=== PATIENT | female | born 2000 | race Hispanic/Latino ===

== ENCOUNTER 2020-05-05 21:38 | Emergency (ER) | payer OTHER ==
[2020-05-05] MEDS ORDERED: ONDANSETRON 4 MG/2 ML VIAL ONE (22:31)
[2020-05-05] MEDS ORDERED: NA CHLORIDE 0.9% 1,000 ML ONE (22:31)
[2020-05-05 23:03] LABS: Absolute Lymphocytes (CBC) 1.7 K/uL (0.7-4.9); Basophils % 0.7 % (0-1.3); Lymphocytes % 21.9 % (15.3-44.8); MPV 8.9 fL (7.6-11.3); RBC Red Blood Cell Count 4.52 M/uL (3.86-4.86)
[2020-05-05] MEDS ORDERED: DIPHENHYDRAMINE 50 MG/ML VIAL ONE (23:10)
[2020-05-05 23:15] LABS: ALT/SGPT 27 U/L (12-78); AST/SGOT 16 U/L (15-37); Albumin 3.6 g/dL (3.4-5.0); Alkaline Phosphatase 66 U/L (45-117); BUN Blood Urea Nitrogen 7 mg/dL (7-18); Bicarbonate 25 mmol/L (21-32); Bilirubin Direct < 0.1 mg/dL (0-0.2); Bilirubin Total 0.4 mg/dL (0.2-1.0); Glucose Level 152 mg/dL (74-106); Lipase 111 U/L (73-393); Magnesium 2.3 mg/dL (1.8-2.4); Potassium 3.4 mmol/L (3.5-5.1); Protein, Total 7.7 g/dL (6.4-8.2); Sodium Level 141 mmol/L (136-145)
[2020-05-06 00:07] LABS: Urine Blood 1+ (NEG); Urine Glucose NEGATIVE (NEG); Urine Protein NEGATIVE (NEG); Urine pH 6.5 (5.0-7.0)
--- NOTE | 2020-05-06 00:12 | EDPHYS ---
Physician Documentation [facility] Name: Aileen Osborne Age: 19 yrs Sex: Female : 2000 Arrival Date: 05/05/2020 Time: 21:40 Bed 14 Private MD: ED Physician Lazaro Ortega HPI: 05/05 22:05 This 19 yrs old Female presents to ER via Ambulatory with complaints of cp Diarrhea. 22:05 The patient presents to the emergency department with nausea, that is mild, diarrhea, cp that is intermittent, 5 times today. 22:05 Onset: The symptoms/episode began/occurred gradually, and became worse today. Possible cp causes: Patient reports having endoscopy and CT abdomen performed last Wednesday, 4 days ago. Associated signs and symptoms: Pertinent negatives: anorexia, constipation, dysuria, fever, GI bleeding, vomiting. Severity of symptoms: in the emergency department the symptoms are unchanged. Historical: - Allergies: 21:48 PENICILLINS; ll1 - PSHx: 21:48 None; ll1 - Immunization history:: Flu vaccine is not up to date. - Social history:: Smoking status: Patient denies any tobacco usage or history of. ROS: 22:10 Constitutional: Negative for body aches, chills, fever, poor PO intake, weight loss. cp 22:10 Eyes: Negative for injury, pain, redness, and discharge. cp 22:10 ENT: Negative for ear pain, sore throat, difficulty swallowing, difficulty handling secretions. 22:10 Cardiovascular: Negative for chest pain, palpitations. 22:10 Respiratory: Negative for cough, shortness of breath, wheezing. 22:10 Abdomen/GI: Positive for nausea, diarrhea, Negative for abdominal pain, vomiting, constipation, anorexia, black/tarry stool, rectal bleeding. 22:10 Back: Negative for radiated pain. 22:10 : Negative for urinary symptoms. 22:10 Skin: Negative for rash. 22:10 Neuro: Negative for altered mental status, headache, weakness. 22:10 All other systems are negative. Exam: 22:15 Constitutional: The patient appears in no acute distress, alert, awake, non-toxic, well cp developed, well nourished. 22:15 Head/Face: Normocephalic, atraumatic. cp 22:15 Eyes: Periorbital structures: appear normal, Conjunctiva: normal, no exudate, no injection, Sclera: no appreciated abnormality, Lids and lashes: appear normal, bilaterally. 22:15 ENT: External ear(s): are unremarkable, Nose: is normal, Mouth: Lips: moist, Oral mucosa: moist, Posterior pharynx: Airway: no evidence of obstruction, patent. 22:15 Chest/axilla: Inspection: normal, Palpation: is normal, no crepitus, no tenderness. 22:15 Cardiovascular: Rate: tachycardic, Rhythm: regular. 22:15 Respiratory: the patient does not display signs of respiratory distress, Respirations: normal, no use of accessory muscles, no retractions, labored breathing, is not present, Breath sounds: are clear throughout, no decreased breath sounds, no stridor, no wheezing. 22:15 Abdomen/GI: Inspection: abdomen appears normal, Bowel sounds: active, all quadrants, Palpation: abdomen is soft and non-tender, in all quadrants, rebound tenderness, is not appreciated, voluntary guarding, is not appreciated, involuntary guarding, is not appreciated. 22:15 Back: CVA tenderness, is absent. 22:15 Skin: no rash present. 22:15 Neuro: Orientation: to person, place \T\ time. Mentation: is normal, Motor: moves all fours, strength is normal. Vital Signs: 21:45 BP 136 / 90; Pulse 120; Resp 18; Temp 98.5; Pulse Ox 100% ; Weight 68.04 kg; Height 5 ll1 ft. 4 in. (162.56 cm); Pain 6/10; 22:45 BP 120 / 81; Pulse 107; Resp 16; Pulse Ox 99% on R/A; jb4 23:25 BP 138 / 87; Pulse 101; Resp 19; Pulse Ox 100% on R/A; jb4 05/06 00:33 BP 104 / 69; Pulse 99; Resp 16; Pulse Ox 98% on R/A; jb4 05/05 21:45 Body Mass Index 25.75 (68.04 kg, 162.56 cm) ll1 MDM: 05/05 21:55 Patient medically screened. cp 05/06 00:10 Data reviewed: vital signs, nurses notes, lab test result(s), radiologic studies, plain cp films. 00:10 Test interpretation: by ED physician or midlevel provider: xrays of abdomen negative cp for acute findings. Counseling: I had a detailed discussion with the patient and/or guardian regarding: the historical points, exam findings, and any diagnostic results supporting the discharge/admit diagnosis, lab results, radiology results, the need for outpatient follow up, a family practitioner, to return to the emergency department if symptoms worsen or persist or if there are any questions or concerns that arise at home. Response to treatment: the patient's symptoms have markedly improved after treatment, and as a result, I will discharge patient. 05/05 22:08 Order name: Basic Metabolic Panel; Complete Time: 23:21 cp 05/05 23:21 Interpretation: Normal except: K 3.4; CL 109; GLUC 152; GFR 79. cp 05/05 22:08 Order name: CBC with Diff; Complete Time: 23:21 cp 05/05 23:22 Interpretation: Normal except: MN% 3.2. cp 05/05 22:08 Order name: Hepatic Function; Complete Time: 23:21 cp 05/05 23:22 Interpretation: Normal except: GLOB 4.1; A/G 0.9. 05/05 22:08 Order name: Lipase; Complete Time: 23:21 cp 05/05 22:08 Order name: Fecal Leukocyte Stain 05/05 22:08 Order name: Occult Blood 05/05 22:08 Order name: Stool Culture 05/05 22:08 Order name: CDIFF 05/05 22:08 Order name: Magnesium; Complete Time: 23:21 cp 05/05 22:34 Order name: Urine Dipstick--Ancillary (enter results) [facility] 05/05 22:34 Order name: Urine --Ancillary (enter results) [facility] 05/05 23:23 Order name: XRAY Abdomen With Erect 05/05 22:08 Order name: IV Saline Lock; Complete Time: 22:48 cp 05/05 22:08 Order name: Labs collected and sent; Complete Time: 22:48 cp 05/05 22:08 Order name: Urine Dipstick-Ancillary (obtain specimen); Complete Time: 22:33 cp 05/05 22:08 Order name: Urine Test (obtain specimen); Complete Time: 22:33 cp Administered Medications: 05/05 22:40 Drug: Zofran (Ondansetron) 4 mg Route: IVP; Site: right wrist; jb4 23:00 Follow up: Response: Adverse reaction, Physician notified jb4 22:43 Drug: NS 0.9% 1000 ml Route: IV; Rate: 1 bolus; Site: right wrist; jb4 23:45 Follow up: Response: No adverse reaction; IV Status: Completed infusion jb4 23:00 Drug: Benadryl 12.5 mg Route: IVP; Site: right wrist; jb4 23:20 Follow up: Response: Marked relief of symptoms jb4 23:25 Drug: Benadryl 12.5 mg Route: IVP; Site: right wrist; jb4 05/06 00:39 Follow up: Response: No adverse reaction; Marked relief of symptoms jb4 00:24 Drug: LoMOTIL 2 tabs Route: PO; jb4 00:39 Follow up: Response: No adverse reaction jb4 00:24 Drug: Potassium Effervescent Tablet 25 mEq Route: PO; jb4 00:38 Follow up: Response: No adverse reaction jb4 Disposition: 05/07 00:12 Co-signature as Attending Physician, Lazaro Ortega MD. [email or web address] Disposition: 05/06/20 00:12 Discharged to Home. Impression: Diarrhea, unspecified. - Condition is Stable. - Discharge Instructions: Food Choices to Help Relieve Diarrhea, Adult, Diarrhea, Adult. - Prescriptions for Lomotil 2.5- 0.025 mg Oral Tablet - take 1 tablet by ORAL route every 6 hours As needed; 20 tablet. - Medication Reconciliation Form, Thank You Letter, Antibiotic Education, Prescription Opioid Use form. - Follow up: Private Physician; When: 1 - 2 days; Reason: Recheck today's complaints. - Problem is new. - Symptoms have improved. Signatures: Dispatcher [employer] EDMS Rajan Weiss PA PA cp Bryson, James, RN RN jb4 Jelly Fan RN RN ll1 Lazaro Ortega MD MD [email or web address] Corrections: (The following items were deleted from the chart) 05/06 00:40 00:12 05/06/2020 00:12 Discharged to Home. Impression: Diarrhea, unspecified. Condition jb4 is Stable. Forms are Medication Reconciliation Form, Thank You Letter, Antibiotic Education, Prescription Opioid Use. Follow up: Private Physician; When: 1 - 2 days; Reason: Recheck today's complaints. Problem is new. Symptoms have improved. cp
--- NOTE | 2020-05-06 00:12 | ER ---
Nurse's Notes [facility] Name: Aileen Osborne Age: 19 yrs Sex: Female : 2000 Arrival Date: 05/05/2020 Time: 21:40 Bed 14 Private MD: Diagnosis: Diarrhea, unspecified Presentation: 05/05 21:45 Chief complaint: Patient states: Had endoscopy and CT Wednesday. States she hasn't felt ll1 well since. Nausea, abd pain, diarrhea. Diarrhea and feeling worse today. No fever. Coronavirus screen: Client denies travel out of the [place] in the last 14 days. At this time, the client does not indicate any symptoms associated with coronavirus-19. The client reports previous COVID testing was negative. Ebola Screen: Patient denies travel to an Ebola-affected area in the 21 days before illness onset. Initial Sepsis Screen: Does the patient meet any 2 criteria? HR > 90 bpm. No. Patient's initial sepsis screen is negative. Does the patient have a suspected source of infection? Yes: Acute abdominal pain. Risk Assessment: Do you want to hurt yourself or someone else? Patient reports no desire to harm self or others. Onset of symptoms was May 01, 2020. 21:45 Method Of Arrival: Ambulatory ll1 21:45 Acuity: DIXIE 3 ll1 Historical: - Allergies: 21:48 PENICILLINS; ll1 - PSHx: 21:48 None; ll1 - Immunization history:: Flu vaccine is not up to date. - Social history:: Smoking status: Patient denies any tobacco usage or history of. Screenin:50 Abuse screen: Denies threats or abuse. Nutritional screening: No deficits noted. jb4 Tuberculosis screening: No symptoms or risk factors identified. Fall Risk None identified. Assessment: 21:50 General: Appears in no apparent distress. comfortable, Behavior is calm, cooperative, jb4 appropriate for age. Pain: Denies pain. Neuro: Level of Consciousness is awake, alert, obeys commands, Oriented to person, place, time, situation. Cardiovascular: Patient's skin is warm and dry. Respiratory: Airway is patent Respiratory effort is even, unlabored, Respiratory pattern is regular, symmetrical. GI: Abdomen is flat, Reports diarrhea, nausea. : No signs and/or symptoms were reported regarding the genitourinary system. EENT: No signs and/or symptoms were reported regarding the EENT system. Derm: Skin is intact, Skin is pink, warm \T\ dry. Musculoskeletal: Circulation, motion, and sensation intact. Range of motion: intact in all extremities. 22:49 Reassessment: Patient appears in no apparent distress at this time. Patient and/or jb4 family updated on plan of care and expected duration. Pain level reassessed. Patient is alert, oriented x 3, equal unlabored respirations, skin warm/dry/pink. 22:55 Reassessment: PT report shaking uncontrollably after receiving Zofran provider jb4 notified, see MAR for orders. 23:45 Reassessment: Patient appears in no apparent distress at this time. Patient and/or jb4 family updated on plan of care and expected duration. Pain level reassessed. Patient is alert, oriented x 3, equal unlabored respirations, skin warm/dry/pink. 05/06 00:33 Reassessment: Patient appears in no apparent distress at this time. Patient and/or jb4 family updated on plan of care and expected duration. Pain level reassessed. Patient is alert, oriented x 3, equal unlabored respirations, skin warm/dry/pink. Vital Signs: 05/05 21:45 BP 136 / 90; Pulse 120; Resp 18; Temp 98.5; Pulse Ox 100% ; Weight 68.04 kg; Height 5 ll1 ft. 4 in. (162.56 cm); Pain 6/10; 22:45 BP 120 / 81; Pulse 107; Resp 16; Pulse Ox 99% on R/A; jb4 23:25 BP 138 / 87; Pulse 101; Resp 19; Pulse Ox 100% on R/A; jb4 05/06 00:33 BP 104 / 69; Pulse 99; Resp 16; Pulse Ox 98% on R/A; jb4 05/05 21:45 Body Mass Index 25.75 (68.04 kg, 162.56 cm) ll1 ED Course: 05/05 21:40 Patient arrived in ED. cl3 21:47 Triage completed. ll1 21:48 Arm band placed on Patient placed in an exam room, on a stretcher. ll1 21:49 Rajan Weiss PA is PHCP. cp 21:49 Lazaro Ortega MD is Attending Physician. cp 22:09 Haroon Carranza, RN is Primary Nurse. jb4 22:10 Urine collected: clean catch specimen, clear, evan colored. jp3 22:20 Placed in gown. Bed in low position. Call light in reach. Side rails up X 1. Warm jp3 blanket given. Verbal reassurance given. Pulse ox on. NIBP on. 22:20 Stool sample collected. Patient maintains SpO2 saturation greater than 95% on room air. jp3 22:20 Stool Culture Sent, Fecal Leukocyte Stain, Occult Blood Sent. jp3 22:20 CDIFF Sent. jp3 05/06 00:15 XRAY Abdomen With Erect In Process Unspecified. EDMS 00:34 No provider procedures requiring assistance completed. IV discontinued, intact, jb4 bleeding controlled, No redness/swelling at site. Pressure dressing applied. Administered Medications: 05/05 22:40 Drug: Zofran (Ondansetron) 4 mg Route: IVP; Site: right wrist; jb4 23:00 Follow up: Response: Adverse reaction, Physician notified jb4 22:43 Drug: NS 0.9% 1000 ml Route: IV; Rate: 1 bolus; Site: right wrist; jb4 23:45 Follow up: Response: No adverse reaction; IV Status: Completed infusion jb4 23:00 Drug: Benadryl 12.5 mg Route: IVP; Site: right wrist; jb4 23:20 Follow up: Response: Marked relief of symptoms jb4 23:25 Drug: Benadryl 12.5 mg Route: IVP; Site: right wrist; jb4 05/06 00:39 Follow up: Response: No adverse reaction; Marked relief of symptoms jb4 00:24 Drug: LoMOTIL 2 tabs Route: PO; jb4 00:39 Follow up: Response: No adverse reaction jb4 00:24 Drug: Potassium Effervescent Tablet 25 mEq Route: PO; jb4 00:38 Follow up: Response: No adverse reaction jb4 Outcome: 00:12 Discharge ordered by . cp 00:34 Discharged to home ambulatory, with family. jb4 00:34 Condition: stable 00:34 Discharge instructions given to patient, Instructed on discharge instructions, follow up and referral plans. medication usage, Demonstrated understanding of instructions, follow-up care, medications, Prescriptions given X 1. 00:40 Patient left the ED. jb4 Signatures: Dispatcher [employer] EDFL Rajan Weiss PA PA cp Bryson, James, RN RN jb4 Kavin Ariza jp3 Katerine Fan cl3 Jelly Fan, RN RN ll1 Corrections: (The following items were deleted from the chart) 05/05 22 22:25 Fecal Leukocyte Stain+BA.LAB.BRZ drawn and sent. jp3 jp3 22: Occult Blood+BA.LAB.BRZ drawn and sent. jp3 jp3 22: Stool Culture+BA.LAB.BRZ drawn and sent. jp3 jp3 22 22:33 C.difficile GDH Ag \T\ Toxin AB+LAB.BRZ drawn and sent. jp3 jp3
[2020-05-06] MEDS ORDERED: POTASSIUM 25 MEQ EFFERV TAB ONE (00:27)
[2020-05-06] MEDS ORDERED: DIPHENOX/ATROP SULF 1 TAB PO ONE (00:27)
[2020-05-06 01:13] VITALS: TEMP 98.5
[2020-05-06 01:17] VITALS: BP 104/69; O2SAT 98
--- NOTE | 2020-05-06 08:35 | RAD REPORT ---
EXAM DESCRIPTION: RAD - Abdomen W Erect - 05/06/2020 12:10 am CLINICAL HISTORY: diarrhea Pain COMPARISON: No comparisons FINDINGS: The bowel gas pattern is non-obstructive. No evidence of free air or pneumatosis. No suspi cious calcifications. No significant bony findings. IMPRESSION: Negative examination.
[2020-05-06 16:18] LABS: C.diff Antigen/Toxin AG NEG:TOX NEG (NEG : NEG)
== END 2020-05-06 00:40 | disposition home or self-care (01) ==
LOC: ER 21:38
DX: R19.7 Diarrhea, unspecified (principal); Z88.0 Allergy status to penicillin
CPT/HCPCS: 96361; 87045; 85025; 80048; 36415; 83735; 89055; 82274; 81025; 80076; 87046; 81003; 87324; 83690; 87449; 74019; 96375; 96374; 99284; J1200; J7030; J2405

== ENCOUNTER 2021-12-05 08:34 | Emergency (ER) | payer OTHER ==
--- OUTSIDE RECORDS SUMMARY | 2021-12-05 08:37 | XMS REPORT | Continuity of Care Document ---
:2000 Author Organization [facility] t Address [address] [place] [address] Care Team Providers Name Role Phone GLASSNER Attending Clinician Unavailable Problems This patient has no known problems. Allergies, Adverse Reactions, Alerts This patient has no known allergies or adverse reactions. Medications This patient has no known medications. Procedures This patient has no known procedures. Encounters Start End Encounter Admission Attending Care Care Encounter Source Date/Time Date/Time Type Type Clinicians Facility Department ID 2020-11-12 2020-11-12 Outpatient [facility] [id number] [place] 00:00:00 00:00:00 ANI [address] 2020-07-31 2020-07-31 Outpatient [facility] [id number] [place] 00:00:00 00:00:00 ANI [address] 2020-06-11 2020-06-11 Outpatient [facility] [id number] [place] 00:00:00 00:00:00 ANI [address] 2020-05-14 2020-05-14 [facility] [id number] [place] 00:00:00 00:00:00 ANI [address] Results This patient has no known results.
[2021-12-05] MEDS ORDERED: METOCLOPRAMIDE 10 MG/2mL INJ ONE (09:20)
[2021-12-05] MEDS ORDERED: NA CHLORIDE 0.9% 1,000 ML ONE (09:20)
[2021-12-05 09:36] LABS: Urine Blood 2+ (Negative); Urine Glucose Negative (Negative); Urine Protein Negative (Negative); Urine Specific Gravity 1.015 (1.005-1.030)
[2021-12-05] MEDS ORDERED: DIPHENHYDRAMINE 50 MG/ML VIAL ONE (09:36)
[2021-12-05] MEDS ORDERED: FAMOTIDINE 20 MG/2 ML VIAL IV ONE (09:36)
[2021-12-05 09:43] LABS: Absolute Lymphocytes (CBC) 1.3 K/uL (0.7-4.9); Hematocrit 45.6 % (36.0-45.0); Lymphocytes % 15.6 % (15.3-44.8); MPV 8.6 fL (7.6-11.3); RBC Red Blood Cell Count 4.93 M/uL (3.86-4.86)
[2021-12-05 09:58] LABS: Urine Specific Gravity/Preg 1.015 (1.005-1.030)
[2021-12-05 09:58] LABS: Bilirubin Total 0.8 mg/dL (0.2-1.0); Potassium 3.8 mmol/L (3.5-5.1); Protein, Total 8.5 g/dL (6.4-8.2)
[2021-12-05] MEDS ORDERED: DICYCLOMINE HCL 20 MG/2 ML AMP IM ONE (10:29)
[2021-12-05] MEDS ORDERED: MORPHINE 4 MG/ML SYR ONE (11:05)
--- NOTE | 2021-12-05 12:18 | RAD REPORT ---
EXAM DESCRIPTION: CT - Abdomen Pelvis W Contrast - 12/05/2021 11:51 am CLINICAL HISTORY: Abdominal pain COMPARISON: 2019 TECHNIQUE: Computed axial tomography of the abdomen pelvis was obtained. 100 cc Isovue-300 was admin istered intravenously. Oral contrast was not requested which limits evaluation of bowel and appendix All CT scans are performed using dose optimization technique as appropriate and may include automated exposure control or mA/KV adjustment according to patient size. FINDINGS: The liver, spleen, pancreas, adrenal and kidneys appear unremarkable. There is no evidence of diverticulitis. Normal appendix Fluid is present within nondilated large small bowel. No adnexal mass IMPRESSION: Fluid within nondilated large and small bowel may indicate an enteritis
--- NOTE | 2021-12-05 12:23 | EDPHYS ---
Physician Documentation [facility] Name: Aileen Osborne Age: 21 yrs Sex: Female : 2000 Arrival Date: 12/05/2021 Time: 08:40 Bed 7 Private MD: NIKOLE BRAXTON ED Physician Marvel Long HPI: 12/05 09:09 This 21 yrs old Female presents to ER via Ambulatory with complaints of jmm Diarrhea, Abdominal Pain, Decreased Appetite. 09:09 The patient presents to the emergency department with nausea, diarrhea, abdominal pain. jmm Onset: The symptoms/episode began/occurred acutely, this morning. Possible causes: unknown. The symptoms are aggravated by nothing. The symptoms are alleviated by nothing. Associated signs and symptoms: Pertinent positives: abdominal pain. The patient has not experienced similar symptoms in the past. 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 - Social history:: Smoking status: Patient denies any tobacco usage or history of. ROS: 09:09 Constitutional: Negative for fever, chills, and weight loss, Cardiovascular: Negative jmm for chest pain, palpitations, and edema, Respiratory: Negative for shortness of breath, cough, wheezing, and pleuritic chest pain. 09:09 Abdomen/GI: Positive for abdominal pain, nausea, diarrhea. 09:09 All other systems are negative. Exam: 09:09 Constitutional: This is a well developed, well nourished patient who is awake, alert, jmm and in no acute distress. Head/Face: atraumatic. Eyes: EOMI, no conjunctival erythema appreciated ENT: Moist Mucus Membranes Neck: Trachea midline, Supple Chest/axilla: Normal chest wall appearance and motion. Cardiovascular: Regular rate and rhythm. No edema appreciated Respiratory: Normal respirations, no respiratory distress appreciated 09:09 Back: Normal ROM Skin: General appearance color normal MS/ Extremity: Moves all extremities, no obvious deformities appreciated, no edema noted to the lower extremities Neuro: Awake and alert Psych: Behavior is normal, Mood is normal, Patient is cooperative and pleasant 09:09 Abdomen/GI: Inspection: abdomen appears normal, Bowel sounds: normal, Palpation: soft, mild abdominal tenderness, in the right lower quadrant and left lower quadrant. Vital Signs: 08:58 BP 128 / 89; Pulse 112; Resp 16; Temp 98.4; Pulse Ox 100% on R/A; Weight 63.05 kg; iw Height 5 ft. 3 in. (160.02 cm); 09:46 BP 119 / 81; Pulse 102; Resp 16; Pulse Ox 100% on R/A; vg1 10:30 BP 97 / 64; Pulse 101; Resp 16; Pulse Ox 100% on R/A; vg1 12:03 BP 114 / 77; Pulse 84; Resp 16; Pulse Ox 100% on R/A; vg1 08:58 Body Mass Index 24.62 (63.05 kg, 160.02 cm) iw MDM: 09:09 Patient medically screened. [facility] 12:21 Data reviewed: vital signs, nurses notes. Counseling: I had a detailed discussion with sherron the patient and/or guardian regarding: the historical points, exam findings, and any diagnostic results supporting the discharge/admit diagnosis, lab results, radiology results, the need for outpatient follow up, to return to the emergency department if symptoms worsen or persist or if there are any questions or concerns that arise at home. 12/05 09:20 Order name: CBC with Diff; Complete Time: 09:47 [facility] 12/05 09:20 Order name: CMP; Complete Time: 09:58 [facility] 12/05 09:20 Order name: Lipase; Complete Time: 09:58 [facility] 12/05 09:36 Order name: Urine Dipstick-Ancillary; Complete Time: 09:37 [facility] 12/05 09:37 Order name: Urine --Ancillary (enter results); Complete Time: 09:59 dh3 12/05 11:09 Order name: CT Abd/Pelvis - IV Contrast Only; Complete Time: 12:21 [facility] 12/05 09:20 Order name: IV Saline Lock; Complete Time: 09:28 [facility] 12/05 09:20 Order name: Labs collected and sent; Complete Time: 09:28 [facility] 12/05 09:20 Order name: Urine Dipstick-Ancillary (obtain specimen); Complete Time: 09:43 [facility] 12/05 09:20 Order name: Urine Test (obtain specimen); Complete Time: :43 [facility] Administered Medications: 08:38 Drug: diphenhydrAMINE 12.5 mg Route: IVP; Site: left antecubital; vg1 12:01 Follow up: Response: No adverse reaction vg1 08:40 Drug: Pepcid (famotidine) 20 mg Route: IVP; Site: left antecubital; vg1 12:02 Follow up: Response: No adverse reaction vg1 09:28 Drug: NS 0.9% 1000 ml Route: IV; Rate: 1 bolus; Site: left antecubital; vg1 12:09 Follow up: IV Status: Completed infusion; IV Intake: 1000ml vg1 09:28 Drug: Reglan (metoCLOPramide) 10 mg Route: IVP; Site: left antecubital; vg1 12:01 Follow up: Response: No adverse reaction vg1 10:34 Drug: Bentyl (dicyclomine) 20 mg Route: IM; Site: right gluteus; vg1 12:01 Follow up: Response: No adverse reaction; Marked relief of symptoms vg1 11:23 Drug: morphine 2 mg {Note: Pt received 2 mg of the 4 mg ordered per provider.} Route: vg1 IVP; Infused Over: 4 mins; Site: left antecubital; 12:00 Follow up: Response: Pain is decreased vg1 Disposition: 18:19 Co-signature as Attending Physician, Marvel Long MD. rn Disposition Summary: 12/05/21 12:22 Discharge Ordered Location: Home [facility] Condition: Stable [facility] Diagnosis - Diarrhea, unspecified [facility] Followup: [facility] - With: Private Physician - When: 2 - 3 days - Reason: Recheck today's complaints, Continuance of care, Re-evaluation by your physician Discharge Instructions: - Discharge Summary Sheet [facility] - Food Choices to Help Relieve Diarrhea, Adult [facility] Forms: - Medication Reconciliation Form [facility] - Thank You Letter [facility] - Antibiotic Education [facility] - Prescription Opioid Use [facility] Prescriptions: - dicyclomine 20 mg Oral Tablet - take 1 tablet by ORAL route 4 times per day; 20 tablet; Refills: 0, Product [facility] Selection Permitted - promethazine 25 mg Oral Tablet - take 1 tablet by ORAL route every 6 hours As needed; 20 tablet; Refills: 0, jmm Product Selection Permitted Signatures: Dispatcher [employer] Prem Bernal PA PA jmm Williams, Irene, RN RN iw Nieto, Roman, MD MD rn Garcia, Victoria, RN RN vg1
--- NOTE | 2021-12-05 12:23 | ER ---
Nurse's Notes [facility] Name: Aileen Osborne Age: 21 yrs Sex: Female : 2000 Arrival Date: 12/05/2021 Time: 08:40 Bed 7 Private MD: NIKOLE BRAXTON Diagnosis: Diarrhea, unspecified Presentation: 12/05 08:58 Chief complaint: Patient states: diarrhea since this morning , having sharp pain across iw lower abdomen, intermittent. Coronavirus screen: Ebola Screen: Patient negative for fever greater than or equal to 101.5 degrees Fahrenheit, and additional compatible Ebola Virus Disease symptoms Patient denies exposure to infectious person. Patient denies travel to an Ebola-affected area in the 21 days before illness onset. No symptoms or risks identified at this time. Initial Sepsis Screen: Does the patient meet any 2 criteria? No. Patient's initial sepsis screen is negative. Does the patient have a suspected source of infection? No. Patient's initial sepsis screen is negative. Risk Assessment: Do you want to hurt yourself or someone else? Patient reports no desire to harm self or others. Onset of symptoms was December 05, 2021. 08:58 Method Of Arrival: Ambulatory iw 08:58 Acuity: DIXIE 3 iw DBA: 08:59 LMP 11/28/2021 iw Historical: - Allergies: 08:59 PENICILLINS; iw 08:59 Zofran; iw 08:59 Nexium; iw - Home Meds: 08:59 control daily [Active]; iw - PMHx: 08:59 IBS; iw - PSHx: 08:59 None; iw - Immunization history:: Client reports having NOT received the Covid vaccine. - Social history:: Smoking status: Patient denies any tobacco usage or history of. Screenin:00 Abuse screen: Denies threats or abuse. Nutritional screening: No deficits noted. vg1 Tuberculosis screening: No symptoms or risk factors identified. Fall Risk No fall in past 12 months (0 pts). No secondary diagnosis (0 pts). IV access (20 points). Ambulatory Aid- None/Bed Rest/Nurse Assist (0 pts). Gait- Normal/Bed Rest/Wheelchair (0 pts) Mental Status- Oriented to own ability (0 pts). Total Barker Fall Scale indicates No Risk (0-24 pts). Assessment: 09:00 General: Appears in no apparent distress. uncomfortable, Behavior is calm, cooperative. vg1 Pain: Complains of pain in right lower quadrant and left lower quadrant Pain currently is 5 out of 10 on a pain scale. Pain began this morning Noted to be grimacing. Neuro: Farfan Agitation-Sedation Scale (RASS): 0 - Alert and Calm Level of Consciousness is awake, alert, obeys commands, Oriented to person, place, time, situation. Cardiovascular: Patient's skin is warm and dry. Respiratory: Airway is patent Respiratory effort is even, unlabored. GI: Abdomen is flat, non-distended, Abdomen is tender to palpation in right lower quadrant and left lower quadrant Reports diarrhea, nausea, Patient currently denies vomiting. : No signs and/or symptoms were reported regarding the genitourinary system. EENT: No signs and/or symptoms were reported regarding the EENT system. Derm: Skin is intact, is healthy with good turgor. Musculoskeletal: Circulation, motion, and sensation intact. 10:00 Reassessment: Patient appears in no apparent distress at this time. No changes from vg1 previously documented assessment. Patient and/or family updated on plan of care and expected duration. Pain level reassessed. Patient is alert, oriented x 3, equal unlabored respirations, skin warm/dry/pink. 10:21 Reassessment: Received VO from Wiliam MICHELLE to administer Bentyl 20 mg IM x1. vg1 12:02 Reassessment: Patient appears in no apparent distress at this time. Patient and/or vg1 family updated on plan of care and expected duration. Pain level reassessed. Patient is alert, oriented x 3, equal unlabored respirations, skin warm/dry/pink. Patient denies pain at this time. Patient states feeling better. Vital Signs: 08:58 BP 128 / 89; Pulse 112; Resp 16; Temp 98.4; Pulse Ox 100% on R/A; Weight 63.05 kg; iw Height 5 ft. 3 in. (160.02 cm); 09:46 BP 119 / 81; Pulse 102; Resp 16; Pulse Ox 100% on R/A; vg1 10:30 BP 97 / 64; Pulse 101; Resp 16; Pulse Ox 100% on R/A; vg1 12:03 BP 114 / 77; Pulse 84; Resp 16; Pulse Ox 100% on R/A; vg1 08:58 Body Mass Index 24.62 (63.05 kg, 160.02 cm) ED Course: 08:40 Patient arrived in ED. am2 08:40 NIKOLE BRAXTON is Private Physician. am2 08:59 Triage completed. iw 09:00 Joanne Gatica, RN is Primary Nurse. vg1 09:00 Prem Swain PA is PHCP. [facility] 09:00 Marvel Long MD is Attending Physician. [facility] 09:00 Arm band placed on. iw 09:00 Patient has correct armband on for positive identification. Bed in low position. Call vg1 light in reach. Side rails up X 1. Adult w/ patient. 09:00 No provider procedures requiring assistance completed. vg1 09:22 Initial lab(s) drawn, by va, sent to lab. Inserted saline lock: 20 gauge in left vg1 antecubital area, using aseptic technique. Blood collected. 11:53 CT Abd/Pelvis - IV Contrast Only In Process Unspecified. EDMS 12:33 IV discontinued, intact, bleeding controlled, No redness/swelling at site. Pressure vg1 dressing applied. Administered Medications: 08:38 Drug: diphenhydrAMINE 12.5 mg Route: IVP; Site: left antecubital; vg1 12:01 Follow up: Response: No adverse reaction vg1 08:40 Drug: Pepcid (famotidine) 20 mg Route: IVP; Site: left antecubital; vg1 12:02 Follow up: Response: No adverse reaction vg1 09:28 Drug: NS 0.9% 1000 ml Route: IV; Rate: 1 bolus; Site: left antecubital; vg1 12:09 Follow up: IV Status: Completed infusion; IV Intake: 1000ml vg1 09:28 Drug: Reglan (metoCLOPramide) 10 mg Route: IVP; Site: left antecubital; vg1 12:01 Follow up: Response: No adverse reaction vg1 10:34 Drug: Bentyl (dicyclomine) 20 mg Route: IM; Site: right gluteus; vg1 12:01 Follow up: Response: No adverse reaction; Marked relief of symptoms vg1 11:23 Drug: morphine 2 mg {Note: Pt received 2 mg of the 4 mg ordered per provider.} Route: vg1 IVP; Infused Over: 4 mins; Site: left antecubital; 12:00 Follow up: Response: Pain is decreased vg1 Medication: 09:00 VIS not applicable for this client. vg1 Intake: 12:09 IV: 1000ml; Total: 1000ml. vg1 Outcome: : Discharge ordered by MD. siu 12:33 Discharged to home ambulatory, with family. vg1 12:33 Condition: good 12:33 Discharge instructions given to patient, family, Instructed on discharge instructions, follow up and referral plans. medication usage, Demonstrated understanding of instructions, follow-up care, medications, Prescriptions given X 2. 12:33 Patient left the ED. vg1 Signatures: Dispatcher [employer] EDMS Prem Swain PA PA jmm Williams, Irene, RN Christina Aguiar Victoria RN RN vg1
[2021-12-05 12:52] VITALS: TEMP 98.4; O2SAT 100
[2021-12-05 12:56] VITALS: BP 114/77
== END 2021-12-05 12:33 | disposition home or self-care (01) ==
LOC: ER 08:34
DX: R19.7 Diarrhea, unspecified (principal); R10.30 Lower abdominal pain, unspecified; Z88.0 Allergy status to penicillin; Z88.8 Allergy status to other drugs, medicaments and biological substances
CPT/HCPCS: 96361; 85025; 36415; 81025; 81003; 83690; 80053; 74177; 96375; 96372; 96374; 99284; Q9967; J2765; J0500; J1200; J7030; J3490